=== PATIENT | female | born 1995 | race African-American/Black ===

== ENCOUNTER 2025-03-09 09:48 | Emergency (ER) | payer OTHER ==
[~2025-03-09 09:48] MED LIST: Iopamidol 370 76% 100 ML VIAL ONE
[2025-03-09] MEDS ORDERED: Metoclopramide HCl 10 MG (2 mL) VIAL ONE (10:19)
[2025-03-09] MEDS ORDERED: Pantoprazole 40 MG VIAL ONE (10:19)
[2025-03-09 10:54] LABS: Hematocrit 27.3 % (36.0-47.0); Hemoglobin 9.3 g/dL (12.0-16.0); Mean Corpuscular Hemoglobin 30.0 pg (27.0-31.0); Mean Corpuscular Volume 87.6 fl (78.0-98.0); Platelet Count 135 10x3/uL (130-400); Red Blood Cell (RBC) Count 3.11 mill/uL (4.20-5.40); White Blood Cell (WBC) Count 3.2 10x3/uL (4.8-10.8)
[2025-03-09 11:08] LABS: MDiff Complete? YES; Manual Diff?? YES
[2025-03-09 11:09] LABS: Platelet Adequacy Comment Platelets Normal
[2025-03-09 11:15] LABS: ALT (SGPT) 15 U/L (Less than 34); AST (SGOT) 36 U/L (11-34); Albumin 2.4 g/dL (3.1-4.5); Alkaline Phosphatase 55 U/L (40-110); Anion Gap 13 mmol/L (10-20); BUN (Urea Nitrogen) 19 mg/dL (7.0-18.7); Bilirubin, Total 0.3 mg/dL (0.3-1.2); Calc. Creatinine Clearance 0 mL/min (70-130); Calcium 7.4 mg/dL (7.8-10.44); Carbon Dioxide 15 mmol/L (22-29); Chloride 113 mmol/L (98-107); Globulin 4.6 g/dL (2.4-3.5); Glucose 87 mg/dL (70-105); Lipase 25 U/L (8-78); Potassium 4.2 mmol/L (3.5-5.1); Sodium 137 mmol/L (136-145)
[2025-03-09 12:11] LABS: BHCG - Serum Negative (NEGATIVE); Pregs Control Bar Appear? YES (CONTROL BAR)
[2025-03-09 13:53] LABS: CAUTI Indications for Culture Pelvic or flank pain; Glucose, Urine (Dipstick) Negative (Negative); Leukocyte Negative (Negative); Protein, Urine (Dipstick) > or equal to 300 mg/dL (Neg-Trace); RBC/HPF 0-3 HPF (0-3); Specific Gravity, Urine 1.015 (1.005-1.030); WBC/HPF 0-3 HPF (0-3)
[2025-03-09 13:54] LABS: Bacteria/HPF 1+ HPF (None Seen)
[2025-03-09 13:55] LABS: Urine Culture Reflex No No
[2025-03-09 14:01] LABS: Cocaine Metabolite Screen Negative (Negative); THC/Cannabinoid Screen PRELIM POSITIVE (Negative); Tricyclic Screen Negative (Negative)
== END 2025-03-09 16:55 | disposition home or self-care (01) ==
LOC: NAV ERS 09:48
DX: A08.4 Viral intestinal infection, unspecified (principal); F17.210 Nicotine dependence, cigarettes, uncomplicated
CPT/HCPCS: 36415; 74177; 80053; 80306; 81001; 83690; 84703; 85025; 87428; 96361; 96374; 96375; J2470; J2765; J7030; Q9967

== ENCOUNTER 2025-03-21 12:43 | Emergency (ER) | payer OTHER | END 2025-03-21 14:45 | disposition home or self-care (01) | LOC: NAV ERS 12:43 | DX: G57.93 Unspecified mononeuropathy of bilateral lower limbs (principal); M32.9 Systemic lupus erythematosus, unspecified; F17.210 Nicotine dependence, cigarettes, uncomplicated | CPT/HCPCS: 99284 ==